=== PATIENT | female | born 1980 | race Caucasian/White ===

== ENCOUNTER 2017-07-26 07:11 | Observation (INO) | payer OTHER ==
[~2017-07-26] VITALS: Ht 161.3 cm; Wt 75.7 kg
[~2017-07-26 07:11] MED LIST: ALPR0.25 PO; DEXI60CA2 PO; FE FCAP2 PO; LEXA5TAB PO; RANI150T PO
[2017-07-26] MEDS ORDERED: MIDAZOLAM HCL 2 MG/2 ML VIAL IV ONE (08:08)
[2017-07-26] MEDS ORDERED: PROPOFOL 200 MG/20 ML AMP IV ONE (08:08)
[2017-07-26] MEDS ORDERED: LACTATED RINGER'S 1000 ML INJ 1,000 ML IV ONE (08:08)
[2017-07-26] MEDS ORDERED: MORPHINE SULFATE 4 MG/ML INJ IV ONE (08:08)
[2017-07-26] MEDS ORDERED: SODIUM CHLORIDE 0.9% 20 ML VIAL IV ONE (08:08)
[2017-07-26] MEDS ORDERED: DEXAMETHASONE SOD PHOS 4 MG/ML VIAL IV ONE (08:08)
[2017-07-26] MEDS ORDERED: SODIUM CHLOR 0.9% 1000 ML INJ 1,000 ML IV ONE (08:08)
[2017-07-26] MEDS ORDERED: ePHEDrine/NS 25 MG/5 ML SYR IV ONE (08:08)
[2017-07-26] MEDS ORDERED: ROCURONIUM INJ 50 MG/5 ML SYRINGE IV PUSH ONE (08:08)
[2017-07-26] MEDS ORDERED: SODIUM CHLORID 0.9% 500 ML INJ 500 ML IV ONE (08:08)
[2017-07-26] MEDS ORDERED: PHENYLEPH/NS 1000 MCG/10 ML SYR IV ONE (08:08)
[2017-07-26] MEDS ORDERED: LIDOCAINE HCL 1% PF 5 ML AMPULE OTHER ONE (08:08)
[2017-07-26] MEDS ORDERED: ONDANSETRON HCL 4 MG/2 ML VIAL IV PUSH ONE (08:08)
[2017-07-26] MEDS ORDERED: LACTATED RINGER'S 1000 ML IV PRN (08:15)
[2017-07-26] MEDS ORDERED: METOPROLOL TARTRATE 25 MG TAB PO PRN (08:15)
[2017-07-26] MEDS ORDERED: VANCOMYCIN 1,250 MG/NS 250 ML (for 70-84 kg) IV SCH ×2 (08:15)
[2017-07-26] MEDS ORDERED: INSULIN HUMAN REGULAR 1,000 UNITS/10 ML VIAL SQ PRN (08:15)
[2017-07-26] MEDS ORDERED: SODIUM CHLORID 0.9% 500 ML IV PRN (08:15)
[2017-07-26] MEDS ORDERED: SCOPOLAMINE 1.5 MG PATCH T-DERMAL SCH (08:15)
[2017-07-26] MEDS ORDERED: POVIDONE IODINE 5% (ANTISEPSIS KIT) 4 APPLICATIONS EACH NARE PRN (08:15)
[2017-07-26] MEDS ORDERED: CHLORHEXIDINE GLUCONATE 2 % 1 PACK (2 CLOTHS) TOPICAL PRN (08:15)
[2017-07-26] MEDS ORDERED: ONDANSETRON HCL 4 MG/2 ML VIAL IV PUSH SCH (08:15)
[2017-07-26] MEDS ORDERED: ACETAMINOPHEN 1000 MG/100 ML 100 ML IV SCH (08:15)
[2017-07-26] MEDS ORDERED: APREPITANT 40 MG CAP PO SCH (08:15)
[2017-07-26] MEDS ORDERED: BUPIVACAINE/EPINEPHRINE 0.5% 50 ML VIAL ONE (10:26)
[2017-07-26] MEDS ORDERED: diphenhydrAMINE HCL 50 MG/ML VIAL ONE (10:43)
[2017-07-26] MEDS ORDERED: SUGAMMADEX SODIUM 200 MG/2 ML VIAL IV PUSH ONE ×2 (11:58)
[2017-07-26] MEDS ORDERED: Post-op Orders (for Pharmacy) MISC OTHER ONE (13:00)
[2017-07-26] MEDS ORDERED: SODIUM CHLORIDE 0.9% FLUSH 10 ML FLUSH IV FLUSH PRN (13:00)
[2017-07-26] MEDS ORDERED: HYDROmorphone HCL PF 1 MG/ML VIAL IV PUSH PRN (13:00)
[2017-07-26] MEDS ORDERED: ENALAPRILAT 1.25 MG/ML VIAL IV PUSH PRN (13:00)
[2017-07-26] MEDS ORDERED: ACETAMINOPHEN 325MG/HYDROcodone 7.5MG/15ML UDC PO PRN (13:00)
[2017-07-26] MEDS ORDERED: diphenhydrAMINE HCL 50 MG/ML VIAL IV PUSH PRN (13:00)
[2017-07-26] MEDS ORDERED: ONDANSETRON HCL 4 MG/2 ML VIAL IV PUSH PRN (13:00)
[2017-07-26] MEDS ORDERED: DO NOT ADM ANY ANTICOAGULANT DRUGS PRN (13:10)
[2017-07-26] MEDS: D5-1/2 NS + KCL 20 MEQ INJ 1,000 ML IV SCH ×2 (13:45→20:07)
[2017-07-26] MEDS: METOCLOPRAMIDE HCL 10 MG/2 ML VIAL IV PUSH SCH ×2 (15:02→20:08)
[2017-07-26] MEDS: metroNIDAZOLE 500 MG INJ 100 ML IV SCH ×2 (15:10→23:01)
[2017-07-26] MEDS ORDERED: PILL SPLITTER OTHER PRN (15:45)
[2017-07-26] MEDS ORDERED: ENOXAPARIN SODIUM 40 MG/0.4 ML SYRINGE SQ SCH (17:00)
[2017-07-26 17:57] VITALS: BP 119/63; PULSE 70; RESP 16; TEMP 97.7; O2SAT 97
[2017-07-26 20:00] VITALS: BP 109/65; PULSE 61; RESP 18; TEMP 96.3; O2SAT 100
[2017-07-26] MEDS: PANTOPRAZOLE SOD 40 MG DELAYED RELEASE TAB PO SCH (20:07)
[2017-07-26] MEDS: ACETAMINOPHEN 325MG/HYDROcodone 7.5MG/15ML UDC PO PRN (20:08)
[2017-07-26] MEDS: SODIUM CHLORIDE 0.9% FLUSH 10 ML FLUSH IV FLUSH SCH (20:14)
[2017-07-26] MEDS ORDERED: ESCITALOPRAM OXALATE 10 MG TAB PO SCH (21:00)
[2017-07-26] MEDS: VANCOMYCIN INJ 1,250 MG in SODIUM CHLOR 0.9% 250 ML INJ 250 ML IV SCH (23:02)
[2017-07-27] VITALS: BP 125/64; PULSE 58; RESP 20; TEMP 96.3; O2SAT 100
[2017-07-27] MEDS: METOCLOPRAMIDE HCL 10 MG/2 ML VIAL IV PUSH SCH ×2 (01:23→08:25)
[2017-07-27 03:38] VITALS: O2SAT 97
[2017-07-27 04:00] VITALS: BP 121/70; PULSE 57; RESP 18; TEMP 97; O2SAT 99
[2017-07-27] MEDS: D5-1/2 NS + KCL 20 MEQ INJ 1,000 ML IV SCH (04:49)
[2017-07-27] MEDS: metroNIDAZOLE 500 MG INJ 100 ML IV SCH (06:35)
[2017-07-27 07:35] LABS: AUTOMATED NEUTROPHIL # 5.1 TH/MM3 (1.8-7.7); BASOPHIL % 0.2 % (0.0-2.0); EOSINOPHIL # 0.1 TH/MM3 (0-0.4); EOSINOPHIL % 1.1 % (0.0-4.0); HEMATOCRIT 37.6 % (35.0-46.0); HEMO FLAGS DIFF FINAL; LYMPH % 25.3 % (9.0-44.0); MEAN CELL VOLUME 88.4 FL (80.0-100.0); MEAN CORPUSCULAR HGB CONC 33.9 % (32.0-36.0); MONO % 7.4 % (0.0-8.0); PLATELET COUNT 155 TH/MM3 (150-450); RED BLOOD COUNT 4.25 MIL/MM3 (4.00-5.30); RED CELL DISTRIBUTION WIDTH 12.9 % (11.6-17.2); WHITE BLOOD COUNT 7.7 TH/MM3 (4.0-11.0)
[2017-07-27 07:54] LABS: BICARBONATE 22.6 MEQ/L (21.0-32.0); MAGNESIUM 2.1 MG/DL (1.5-2.5); POTASSIUM 3.8 MEQ/L (3.5-5.1)
[2017-07-27 08:00] VITALS: BP 115/68; PULSE 56; RESP 16; TEMP 97; O2SAT 100
[2017-07-27] MEDS: PANTOPRAZOLE SOD 40 MG DELAYED RELEASE TAB PO SCH (08:22)
[2017-07-27] MEDS ORDERED: PANTOPRAZOLE SOD 40 MG DELAYED RELEASE TAB PO SCH (09:00)
[2017-07-27 10:19] VITALS: O2SAT 100
[2017-07-27] MEDS: ACETAMINOPHEN 325MG/HYDROcodone 7.5MG/15ML UDC PO PRN (10:45)
[2017-07-27] MEDS: VANCOMYCIN INJ 1,250 MG in SODIUM CHLOR 0.9% 250 ML INJ 250 ML IV SCH ×3 (10:59→12:48)
[2017-07-27] MEDS: diphenhydrAMINE HCL ELIXIR 12.5 MG/5 ML CUP PO PRN ×2 (11:27→11:32)
[2017-07-27] MEDS: SODIUM CHLORIDE 0.9% FLUSH 10 ML FLUSH IV FLUSH SCH (11:32)
[2017-07-27 12:00] VITALS: BP 121/67; PULSE 53; RESP 16; TEMP 97.7; O2SAT 95
--- NOTE | 2017-07-27 12:08 | HHI.PR ---
Subjective Subjective Notes Sitting up in bed, tolerating 30ml of fluids every 30min. Denies any GI symptoms. No reflux symptoms though patient states she mostly had 'silent reflux '. Passing flatus Objective Vitals/I&O Vital Signs Date Time Temp Pulse Resp B/P (MAP) Pulse Ox O2 Delivery O2 Flow Rate FiO2 07/27/17 10:19 100 21 07/27/17 08:00 97.0 56 16 115/68 (84) 07/26/17 15:45 Room Air 07/26/17 14:00 2 Labs Laboratory Tests Test 07/27/17 07:20 White Blood Count 7.7 Red Blood Count 4.25 Hemoglobin 12.7 Hematocrit 37.6 Mean Corpuscular Volume 88.4 Mean Corpuscular Hemoglobin 30.0 Mean Corpuscular Hemoglobin Concent 33.9 Red Cell Distribution Width 12.9 Platelet Count 155 Mean Platelet Volume 8.1 Neutrophils (%) (Auto) 66.0 Lymphocytes (%) (Auto) 25.3 Monocytes (%) (Auto) 7.4 Eosinophils (%) (Auto) 1.1 Basophils (%) (Auto) 0.2 Neutrophils # (Auto) 5.1 Lymphocytes # (Auto) 2.0 Monocytes # (Auto) 0.6 Eosinophils # (Auto) 0.1 Basophils # (Auto) 0.0 CBC Comment DIFF FINAL Differential Comment Blood Urea Nitrogen 6 Creatinine 0.62 Random Glucose 89 Calcium Level 8.1 Magnesium Level 2.1 Sodium Level 140 Potassium Level 3.8 Chloride Level 111 Carbon Dioxide Level 22.6 Anion Gap 6 Estimat Glomerular Filtration Rate 109 Cardiovascular: Regular Lungs: Clear Abdomen: Post-op tenderness Extremities: Perfused Wound Wound : Wound Location: Abdomen Appearance: Clean & Dry A/P Assessment and Plan 37yo F POD#1 Laparoscopic repair of dilated fundus -Continue to increase fluids as tolerated -Continue with frequent ambulation The exam, history, and the medical decision-making described in the above note were completed with the assistance of the mid-level provider. I reviewed and agree with the findings presented. I attest that I had a [id number] encounter with the patient on the same day, and personally performed and documented my assessment and findings in the medical record. Discharge Planning D/C home probably later today Syed Eugene Jul 27, 2017 12:08 Tristan Arauz MD Aug 17, 2017 12:38
[2017-07-27] MEDS ORDERED: METOCLOPRAMIDE HCL 10 MG/2 ML VIAL IV PUSH PRN (14:00)
[2017-07-27] MEDS ORDERED: SUCRALFATE 1 GM/10 ML CUP PO SCH (18:00)
--- NOTE | 2017-07-28 23:16 | MP ---
cc: AUDIE ARAUZ DATE OF SURGERY 07/26/17 DATE OF 1980 PREOPERATIVE DIAGNOSIS Reflux unresponsive to medical management. POSTOPERATIVE DIAGNOSIS Reflux unresponsive to medical management. PROCEDURE Resection of dilated gastric fundus SURGEON Andrew Arauz MD [employer] Abner Barron MD ESTIMATED BLOOD LOSS [place] ANESTHESIA General endotracheal anesthesia FINDINGS The patient had a dilated gastric fundus that was adhesed to the spleen. It was felt that this may be contributing to her reflux. As such, it was decided to resect this portion of the stomach rather than proceeding with a gastric bypass giving her a trial to see how she does with this. This was discussed with the prior to proceeding. SPECIMEN None COMPLICATIONS None. PROCEDURE IN DETAIL The patient was brought to the operating room and placed on the operating table in supine position. Bilateral sequential inflation device placed on lower extremities. General anesthesia instituted. Antibiotics initiated. Abdomen was prepped and draped sterilely. A point in the epigastric region was anesthetized with 0.25% Marcaine with epinephrine. A skin incision was made, 5 mm OptiView port placed under direct vision and pneumoperitoneum created. Under direct vision, a 5 mm left upper quadrant, 12 mm left upper quadrant, 12 mm right upper quadrant and 5 mm right upper quadrant port was placed. Prior to placement of all ports, the skin and peritoneum were anesthetized with 0.25% Marcaine with epinephrine. The patient was placed in reverse Trendelenburg position left side up. Leidy flex retractor was placed. The left lobe of the liver was retracted. Findings were as above. The omentum that was adherent to the old staple line was taken down using harmonic scalpel. Gastric fundus was found to be dilated and this was adhesed to the spleen. This was taken down using meticulous dissection with care not to injure the spleen during this. Once this was mobilized, the hiatus was dissected. No hiatal hernia identified. The 36-[place] bougie was then placed into the stomach. [place] flex stapler green load reinforced with seam guard was then used to resect this dilated stomach. The pylorus was then occluded, methylene blue was instilled through the OG tube that was placed. There was no evidence of extravasation. At this point, the operative field inspected. Hemostasis was present. CO2 was released. All ports removed. All skin incisions with closed with 4-0 Monocryl. The abdominal wall was cleaned and a sterile dressing placed. The patient was awakened and taken to the recovery room. MD CHRISTOPHER Tomas/ /2:10 PM /10:59 PM
== END 2017-07-27 15:05 | disposition home or self-care (01) ==
LOC: HSDI 07:11 → INTOOBSV 07:11 → N07A 16:27
PROVIDERS: ADMIT Surgery; ATTEND Surgery
DX: K21.9 Gastro-esophageal reflux disease without esophagitis (principal); Z87.891 Personal history of nicotine dependence; Z98.84 Bariatric surgery status
CPT/HCPCS: 00790; 43999; 76937; 80048; 83735; 85025; 94150; G0378; J0131; J1100; J1170; J1200; J1650; J2250; J2270; J2370; J2405; J2765; J3010; J3370; J3480; J7030; J7040; J7050; J7120; J8501